=== PATIENT | male | born 1990 | race Caucasian/White ===

== ENCOUNTER 2020-10-31 09:45 | Emergency (ER) | payer BC ==
--- NOTE | 2020-10-31 10:08 | EDM.PDOC ---
ED HPI GENERAL MEDICAL PROBLEM - General Chief Complaint: General Stated Complaint: L) pointer finger pain Time Seen by Provider: 10/31/20 09:50 Source of Information: Reports: Patient History Limitations: Reports: No Limitations - History of Present Illness INITIAL COMMENTS - FREE TEXT/NARRATIVE: Henrry is a 30 year old male who presents with pain to his left index finger. Patient jammed an electrical test device in to his finger accidently. unsure if any of it broke off in his finger but notes it is very painful, throbbing and starting to get red. Worried that "broke a blood vessel or something". Has noted increased swelling and redness to his finger. No drainage. Does have stiffness. Onset: Gradual Duration: Hour(s):, Getting Worse Location: Reports: Upper Extremity, Left Quality: Reports: Ache Severity: Moderate Associated Symptoms: Reports: No Other Symptoms Treatments [employer]MENT [employer]: Reports: Acetaminophen Left Finger-Index Pain Score (Numeric/FACES): 5 - Related Data Allergies Allergy/AdvReac Type Severity Reaction Status Date / Time No Known Allergies Allergy Verified 10/31/20 09:46 Home Meds: Home Meds . [No Known Home Meds] 07/07/14 [History] Past Medical History - Past Health History Medical/Surgical History: Denies Medical/Surgical History Social & Family History - Family History Family Medical History: No Pertinent Family History - Tobacco Use Tobacco Use Status *Q: Never Tobacco User Second Hand Smoke Exposure: No - Caffeine Use Caffeine Use: Reports: None - Recreational Drug Use Recreational Drug Use: No ED ROS GENERAL - Review of Systems Review Of Systems: Comprehensive ROS is negative, except as noted in HPI. ED EXAM, GENERAL - Physical Exam Exam: See Below Exam Limited By: No Limitations General Appearance: Alert, WD/WN, No Apparent Distress Extremities: Other (Patient noted to have redness from distal tip of finger to past the PIP joint. Is tender. No drainage. Limited range of motion to finger. ) Neurological: Alert, Oriented Skin Exam: Warm, Dry, Erythema Course - Vital Signs Last Recorded V/S: Last Vital Signs Temp 96.8 F L 10/31/20 09:51 Pulse 65 10/31/20 09:51 Resp 16 10/31/20 09:51 BP 139/73 10/31/20 09:51 Pulse Ox 97 10/31/20 09:51 - Orders/Labs/Meds Orders: Active Orders 24 hr Category Date Time Status Fingers Second Digit Lt F1 [CR] Stat Exams 10/31/20 10:00 Ordered - Re-Assessments/Exams Free Text/Narrative Re-Assessment/Exam: 10/31/20 10:14 May have tiny foreign object in tissue of finger, appears pinpoint on xray. Will cover with antibiotics. Advise to take ibuprofen or tylenol for discomfort. Ice. Departure - Departure Time of Disposition: 10:16 Disposition: Home, Self-Care 01 Condition: Good Clinical Impression: Wound infection - Discharge Information *PRESCRIPTION DRUG MONITORING PROGRAM REVIEWED*: No *COPY OF PRESCRIPTION DRUG MONITORING REPORT IN PATIENT MAUDE: No Instructions: Wound Infection, [id number] Forms: ED Department Discharge Additional Instructions: 1. Keep area clean and dry 2. Ice for discomfort and swelling 3. Ibuprofen or tylenol for pain and swelling 4. Cephalexin 500 mg three times a day for 7 days 5. Follow up if any persisting concerns. Sepsis Event Note (ED) - Evaluation Sepsis Screening Result: No Definite Risk - Focused Exam Vital Signs: Vital Signs Temp Pulse Resp BP Pulse Ox 10/31/20 09:51 96.8 F L 65 16 139/73 97 - My Orders Last 24 Hours: My Active Orders 10/31/20 10:00 Fingers Second Digit Lt F1 [CR] Stat - Assessment/Plan Last 24 Hours: My Active Orders 10/31/20 10:00 Fingers Second Digit Lt F1 [CR] Stat
== END 2020-10-31 10:27 | disposition home or self-care (01) ==
LOC: CC.ED 09:45
DX: S61.201A Unspecified open wound of left index finger without damage to nail, initial encounter (principal); L08.9 Local infection of the skin and subcutaneous tissue, unspecified; W23.0XXA Caught, crushed, jammed, or pinched between moving objects, initial encounter
CPT/HCPCS: 73140-F1; 99284-25

== ENCOUNTER 2022-05-21 12:30 | Emergency (ER) | payer BC ==
[2022-05-21] MEDS ORDERED: Fluorescein 1 MG Ophth Strip EYELF STA (13:02)
[2022-05-21] MEDS ORDERED: Distilled Water Ophth Irrig Soln 120 ML Bottle EYELF STA (13:02)
[2022-05-21] MEDS ORDERED: Tetracaine HCl/PF 0.5% 4 ML Bottle EYELF STA (13:02)
[2022-05-21] MEDS ORDERED: Erythromycin Base 0.5% Ophth Oint 3.5 GM Tube EYEBOTH ONE (13:18)
== END 2022-05-21 13:45 | disposition home or self-care (01) ==
LOC: CC.ED 12:30
DX: S05.02XA Injury of conjunctiva and corneal abrasion without foreign body, left eye, initial encounter (principal); W45.8XXA Other foreign body or object entering through skin, initial encounter
CPT/HCPCS: 99283; A9270-GY